=== PATIENT | female | born 1935 | race Asian ===

== ENCOUNTER → 2019-03-09 | Outpatient (CLI) | payer MEDICARE, OTHER ==
--- NOTE | 2019-03-09 12:15 | Diagnostic Imaging Report ---
Exam: Left hand radiographs-4 views History: Osteoporosis, left thumb pain. Comparison: None. Findings: There are moderate to severe degenerative changes at the thumb interphalangeal joint. There is radial subluxation of the thumb distal phalanx in relation to the proximal phalanx. There are moderate degenerative changes of the first carpometacarpal joint and scattered moderate interphalangeal joint degenerative changes. No evidence of acute fracture or soft tissue abnormality. There is mild osteopenia. 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 Mild osteopenia. Signed by: Dr. Sydnie Angel MD on 03/09/2019 12:11 PM
--- NOTE | 2019-03-09 15:42 | Diagnostic Imaging Report ---
EXAM: Bone mineral density study 03/09/2019 11:08 AM INDICATION: ^OSTEOPOROSIS SCREENING COMPARISON: Previous DEXA none. Baseline DEXA none FINDINGS: Evaluation of the left hip and lumbar spine was performed. The study is technically adequate. The patient's fracture risk is compared to an age-matched control. The patient denies prior surgery/fracture of the spine, hips or forearm. LEFT HIP * Femoral neck bone mineral density: 0.622 gm/cm2, T-score is -2.0, Z-score is 0.4. * Total bone mineral density: 0.724 gm/cm2, T-score is -1.8, Z-score is 0.5. LUMBAR SPINE * Total bone mineral density: 1.029 gm/cm2, T-score is -0.2, Z-score is 2.7. IMPRESSION: 1. LEFT HIP: Bone mineralization by WHO Classification is osteopenia, the fracture risk is moderate. 2. LUMBAR SPINE: Bone mineralization by WHO Classification is normal, the fracture risk is not increased. 3. Calculated 10 year risk of major osteoporotic fracture 9.4%, hip fracture 3.0%. <T score: NL = -1 or higher Osteopenia = -1 to -2.5 Osteoporosis = -2.5 or lower Z score: < - 2 concerning for path> Signed by: Dr. Meng Robles M.D. on 03/09/2019 3:38 PM
== END ==
LOC: DX 10:58
PROVIDERS: ATTEND Internal Medicine
DX: M25.542 Pain in joints of left hand (principal); M1A.00X0 Idiopathic chronic gout, unspecified site, without tophus (tophi); R60.0 Localized edema
CPT/HCPCS: 77080